=== PATIENT | male | born 1995 | race Caucasian/White ===

== ENCOUNTER 2018-01-12 06:19 | Emergency (ER) | payer SELFPAY ==
[2018-01-12] MEDS: FLUORESCEIN STRIP BOTH EYES (06:49)
[2018-01-12] MEDS: TETRACAINE 0.5% 4 ML OPH BOTH EYES (06:49)
[2018-01-12] MEDS: HYDROCODONE/APAP (5/325) TAB PO (07:13)
== END 2018-01-12 07:28 | disposition home or self-care (01) ==
LOC: FTE 06:19
DX: S00.211A Abrasion of right eyelid and periocular area, initial encounter (principal); X58.XXXA Exposure to other specified factors, initial encounter; Y92.9 Unspecified place or not applicable; Z87.891 Personal history of nicotine dependence
CPT/HCPCS: 99283